=== PATIENT | female | born 1945 | race Two or more races ===

== ENCOUNTER → 2023-12-11 | Outpatient (CLI) | payer OTHER ==
[~2023-12-11] VITALS: Ht 157.5 cm; Wt 75.3 kg
[2023-12-11] MEDS: ADENOSINE 63 MG in GIVE UN-DILUTED 0 ML IV ONE (10:44)
== END | disposition home or self-care (01) ==
LOC: XYW 08:49
PROVIDERS: ATTEND Student in an Organized Health Care Education/Training Program
DX: Z01.810 Encounter for preprocedural cardiovascular examination (principal); I11.0 Hypertensive heart disease with heart failure; I50.32 Chronic diastolic (congestive) heart failure; R00.1 Bradycardia, unspecified; E78.5 Hyperlipidemia, unspecified; G31.84 Mild cognitive impairment of uncertain or unknown etiology; Z79.899 Other long term (current) drug therapy
CPT/HCPCS: 78452; 93017; A9500; J0153

== ENCOUNTER → 2024-05-19 | Outpatient (CLI) | payer OTHER ==
[2024-05-19 12:37] LABS: Urine Bacteria None Seen /hpf (None Seen)
[2024-05-19 12:41] LABS: Urine Blood Negative /uL (Negative); Urine Clarity Clear (Clear); Urine Color Light-Yellow (Yellow); Urine Protein, UAD Negative (Negative); Urine Specific Gravity 1.003 (1.001-1.035); Urine Urobilinogen Normal (Negative); Urine WBC 1 /hpf (0 - 5)
[2024-05-19 12:47] LABS: Basophils # (auto) 0 10 ^3/uL (0-0.2); Basophils % (auto) 0.4 % (0.0-2.0); Eosinophils # (auto) 0.1 10 ^3/uL (0-0.8); Eosinophils % (auto) 1.4 % (0.0-7.0); Hematocrit 43.1 % (36.0-46.0); Hemoglobin 14.7 g/dL (12.2-16.2); Lymphocytes # (auto) 1.5 10 ^3/uL (0.4-5.4); Lymphocytes % (auto) 29.2 % (10.0-50.0); Mean Corpuscular Hemoglobin 30.4 pg (28.0-32.0); Mean Corpuscular Hgb Conc. 34.1 g/dL (32.0-36.0); Monocytes # (auto) 0.4 10 ^3/uL (0-1.3); Monocytes % (auto) 6.7 % (0.0-12.0); Neutrophils # (auto) 3.3 10 ^3/uL (1.6-8.6); Neutrophils % (auto) 62.3 % (37.0-80.0); Platelet Count (auto) 223 10^3/uL (140-450); Red Blood Cells 4.85 10^6/uL (4.0-5.20); Red Cell Distribution Width 14.3 % (11.8-14.3); White Blood Cell 5.3 10^3/uL (4.4-10.8)
[2024-05-19 13:44] LABS: Erythrocyte Sedimentation Rate 8 mm/hr (0-20)
[2024-05-19 14:16] LABS: Alanine Aminotransferase 16 U/L (7-40); Albumin 4.7 g/dL (3.2-4.8); Alkaline Phosphatase 81 U/L (46-116); Anion Gap 5 (5-15); Aspartate Aminotransferase 21 U/L (13-40); BUN/Creatinine Ratio 12.6 (10.0-20.0); Blood Urea Nitrogen 13 mg/dL (9-23); Carbon Dioxide 29 mmol/L (20-31); Chloride 109 mmol/L (98-107); Cholesterol 147 mg/dL (< 200); Glucose 96 mg/dL (74-106); HDL Cholesterol 59 mg/dL (40-59); LDL Cholesterol 64 mg/dL (< 100); Potassium 4.8 mmol/L (3.5-5.1); Sodium 143 mmol/L (136-145); Triglycerides 120 mg/dL (< 150)
[2024-05-19 14:17] LABS: Bilirubin, Total 0.7 mg/dL (0.2-1.0); Total Protein 7.6 g/dL (5.7-8.2)
== END | disposition home or self-care (01) ==
LOC: LAB 12:12
PROVIDERS: ATTEND Internal Medicine
DX: I10 Essential (primary) hypertension (principal); G30.9 Alzheimer's disease, unspecified
CPT/HCPCS: 36415; 80053; 80061; 81001; 82607; 84443; 85025; 85652

== ENCOUNTER → 2024-08-02 | Outpatient (CLI) | payer OTHER ==
[2024-08-02 14:52] LABS: Basophils # (auto) 0 10 ^3/uL (0-0.2); Basophils % (auto) 0.5 % (0.0-2.0); Eosinophils # (auto) 0.1 10 ^3/uL (0-0.8); Eosinophils % (auto) 2.1 % (0.0-7.0); Hematocrit 42.6 % (36.0-46.0); Hemoglobin 14.2 g/dL (12.2-16.2); Lymphocytes # (auto) 1.9 10 ^3/uL (0.4-5.4); Lymphocytes % (auto) 31.6 % (10.0-50.0); Mean Corpuscular Hemoglobin 29.2 pg (28.0-32.0); Mean Corpuscular Hgb Conc. 33.3 g/dL (32.0-36.0); Mean Corpuscular Volume 87.6 fL (80.0-100.0); Monocytes # (auto) 0.4 10 ^3/uL (0-1.3); Monocytes % (auto) 7.4 % (0.0-12.0); Neutrophils # (auto) 3.5 10 ^3/uL (1.6-8.6); Neutrophils % (auto) 58.4 % (37.0-80.0); Platelet Count (auto) 218 10^3/uL (140-450); Red Blood Cells 4.87 10^6/uL (4.0-5.20); Red Cell Distribution Width 14.1 % (11.8-14.3); White Blood Cell 5.9 10^3/uL (4.4-10.8)
[2024-08-02 15:15] LABS: Erythrocyte Sedimentation Rate 6 mm/hr (0-20)
[2024-08-02 15:28] LABS: Alanine Aminotransferase 11 U/L (7-40); Albumin 4.7 g/dL (3.2-4.8); Alkaline Phosphatase 86 U/L (46-116); Anion Gap 7 (5-15); Aspartate Aminotransferase 17 U/L (13-40); BUN/Creatinine Ratio 11.8 (10.0-20.0); Bilirubin, Total 0.6 mg/dL (0.2-1.0); Blood Urea Nitrogen 13 mg/dL (9-23); Carbon Dioxide 29 mmol/L (20-31); Chloride 106 mmol/L (98-107); Cholesterol 164 mg/dL (< 200); Glucose 91 mg/dL (74-106); HDL Cholesterol 59 mg/dL (40-59); LDL Cholesterol 82 mg/dL (< 100); Potassium 4.2 mmol/L (3.5-5.1); Sodium 142 mmol/L (136-145); Total Protein 7.2 g/dL (5.7-8.2); Triglycerides 129 mg/dL (< 150)
[2024-08-02 15:31] LABS: Free T4 (Free Thyroxine) 1.08 ng/dL (0.89-1.76)
[2024-08-03 10:06] LABS: Albumin 3.7 g/dL (2.9-4.4); Alpha-1-Globulin 0.2 g/dL (0.0-0.4); Alpha-2-Globulin 0.8 g/dL (0.4-1.0); Gamma Globulin 1.1 g/dL (0.4-1.8); Globulin Total 3.2 g/dL (2.2-3.9); Protein Total Serum 6.9 g/dL (6.0-8.5)
== END | disposition home or self-care (01) ==
LOC: LAB 13:53
PROVIDERS: ATTEND Internal Medicine
DX: I10 Essential (primary) hypertension (principal)
CPT/HCPCS: 36415; 80053; 80061; 82607; 83615; 83970; 84155; 84165; 84439; 84443; 85025; 85652

== ENCOUNTER 2024-09-03 08:58 | Day surgery (SDC) | payer OTHER ==
[2024-09-01 13:56] LABS: Basophils # (auto) 0 10 ^3/uL (0-0.2); Basophils % (auto) 0.4 % (0.0-2.0); Eosinophils # (auto) 0.1 10 ^3/uL (0-0.8); Eosinophils % (auto) 1.7 % (0.0-7.0); Hematocrit 39.6 % (36.0-46.0); Hemoglobin 13.4 g/dL (12.2-16.2); Lymphocytes # (auto) 1.9 10 ^3/uL (0.4-5.4); Lymphocytes % (auto) 30.8 % (10.0-50.0); Mean Corpuscular Hemoglobin 29.3 pg (28.0-32.0); Mean Corpuscular Hgb Conc. 33.9 g/dL (32.0-36.0); Mean Corpuscular Volume 86.7 fL (80.0-100.0); Monocytes # (auto) 0.5 10 ^3/uL (0-1.3); Monocytes % (auto) 7.4 % (0.0-12.0); Neutrophils # (auto) 3.7 10 ^3/uL (1.6-8.6); Neutrophils % (auto) 59.7 % (37.0-80.0); Nucleated Red Blood Cells % 0.1 %; Platelet Count (auto) 220 10^3/uL (140-450); Red Blood Cells 4.57 10^6/uL (4.0-5.20); Red Cell Distribution Width 14.1 % (11.8-14.3); White Blood Cell 6.3 10^3/uL (4.4-10.8)
[2024-09-01 14:11] LABS: INR 0.96 (0.9-1.15); Partial Thromboplastin Time 24.5 SEC (24.5-34.5); Prothrombin Time 10.2 sec (9.3-11.8)
[2024-09-01 14:31] LABS: Alanine Aminotransferase 14 U/L (7-40); Albumin 4.5 g/dL (3.2-4.8); Alkaline Phosphatase 79 U/L (46-116); Anion Gap 7 (5-15); Aspartate Aminotransferase 17 U/L (13-40); BUN/Creatinine Ratio 9.6 (10.0-20.0); Bilirubin, Total 0.5 mg/dL (0.2-1.0); Blood Urea Nitrogen 11 mg/dL (9-23); Carbon Dioxide 28 mmol/L (20-31); Chloride 106 mmol/L (98-107); Glucose 92 mg/dL (74-106); Sodium 141 mmol/L (136-145)
[2024-09-01 14:32] LABS: Total Protein 6.8 g/dL (5.7-8.2)
[2024-09-01 14:38] LABS: Calcium 10.5 mg/dL (8.7-10.4)
[~2024-09-03] VITALS: Ht 160 cm; Wt 70.3 kg
[~2024-09-03 08:58] MED LIST: AMLO1TAB22 PO; ASPI-543 PO; DONE5TAB80 PO; FURO20TA3 PO; LOSA-533 PO; MIRT-94 PO; ROSU5TAB5 PO
[2024-09-03] MEDS ORDERED: diphenhdrAMINE HCL 50 MG/1 ML VL ONE (10:25)
[2024-09-03] MEDS: MIDAZOLAM HCL 2MG/2ML 2ml VIAL (1mg/ml) ONE (10:48)
[2024-09-03] MEDS: fentaNYL CITRATE 100 MCG/2 ML VL ONE (10:48)
[2024-09-03] MEDS: MIDAZOLAM HCL 2MG/2ML 2ml VIAL (1mg/ml) IV ONE (10:51)
--- NOTE | 2024-09-03 11:02 | DVHNC2 ---
Procedure - DATE OF PROCEDURE: September 03, 2024 SURGEON: SERGIO MILAN MD REFERRING PROVIDER: Dr. Mike DUTTON PROCEDURE PERFORMED: 1. Colonoscopy with cold biopsy with moderate sedation PRE-PROCEDURE DIAGNOSIS: 1. Fecal incontinence 2. Abnormal imaging on CT scan with sigmoid thickening POSTPROCEDURE DIAGNOSIS: 1. Moderate left-sided diverticulosis 2. 3 mm descending colon polyp 3. 2+ internal and small external hemorrhoids INDICATIONS FOR PROCEDURE: The patient is a 79-year-old female presents for colonoscopy for abnormal imaging with sigmoid thickening as well as fecal incontinence. MEDICATIONS USED: 3 mg Versed IV and 50 mcg of fentanyl IV DETAILS OF THE PROCEDURE: Informed consent was obtained after risks, benefits, and alternatives, were discussed at length with the patient. The patient gave consent to the procedure as well as the medication used for sedation. The carmen ent was placed in the left lateral decubitus position. Digital rectal exam showed internal hemorrhoids and small external hemorrhoids. An Olympus variable torsion pediatric colonoscope was inserted into the rectum and advanced to the cecum. The cecum was identified by the ileocecal valve and the appendiceal orifice. The scope was then withdrawn. The prep was good with little amounts of liquid stool. The patient had moderate left-sided diverticulosis and a 3 mm descending colon polyp removed with cold biopsy completely. More than 6 minutes withdrawal time was noted. Retroflexion showed internal hemorrhoids. The patient tolerated the procedure well. [place] BOWEL PREP SCORE: 9 COLONOSCOPY START TIME: 1052 CECUM TIME: 1054 COLONOSCOPY END TIME: 1100 IMPRESSION: 1. Moderate diverticulosis of colon explaining the abnormal thickening seen on CT scan 2. 3 mm descending colon polyp removed with cold biopsy completely 3. 2+ internal and small external hemorrhoids RECOMMENDATIONS: 1. Follow up with procedure results 2. Repeat colonoscopy only is indicated given patient's age, comorbidities. 3. High-fiber diet 4. Follow up with primary care physician 5. Consider medical management of hemorrhoids which may explain her fecal incont inence I WOULD LIKE TO THANK DR. MCLAUGHLIN FOR THIS REFERRAL SERGIO MILAN MD Sep 03, 2024 11:02
[2024-09-03 11:10] VITALS: PULSE 60; RESP 10; O2SAT 94
[2024-09-03 11:40] VITALS: BP 156/60; PULSE 53; RESP 13; O2SAT 93
== END 2024-09-03 12:10 | disposition home or self-care (01) ==
LOC: GI 08:58
PROVIDERS: ATTEND Specialist
DX: R93.3 Abnormal findings on diagnostic imaging of other parts of digestive tract (principal); R15.9 Full incontinence of feces; K63.5 Polyp of colon; K64.4 Residual hemorrhoidal skin tags; K64.1 Second degree hemorrhoids; I10 Essential (primary) hypertension; F32.9 Major depressive disorder, single episode, unspecified; Z79.899 Other long term (current) drug therapy
CPT/HCPCS: 36415; 45380; 80053; 85025; 85610; 85730; 88305; J2250; J3010